=== PATIENT | male | born 1975 | race Caucasian/White ===

== ENCOUNTER 2016-10-02 12:33 | Emergency (ER) | payer SELFPAY ==
[~2016-10-02] VITALS: Ht 170.2 cm; Wt 135.0 kg
[~2016-10-02 12:33] MED LIST: IBUP200T48 PO; LOSA100T6 PO
[2016-10-02 12:35] VITALS: BP 158/116
[2016-10-02] MEDS ORDERED: NAPR500T3 PO (13:08)
[2016-10-02] MEDS ORDERED: AMLO10TA2 PO (13:08)
== END 2016-10-02 13:27 | disposition home or self-care (01) ==
LOC: ED 13:21
DX: K02.9 Dental caries, unspecified (principal)
CPT/HCPCS: 99283

== ENCOUNTER 2017-08-23 05:24 | Emergency (ER) | payer BC ==
[~2017-08-23] VITALS: Ht 177.8 cm; Wt 133.0 kg
[~2017-08-23 05:24] MED LIST changes: +AMLO10TA2 PO; -IBUP200T48 PO; +IBUP200T49 PO; +NAPR-685 PO
[2017-08-23 05:25] VITALS: BP 133/87
== END 2017-08-23 06:28 | disposition home or self-care (01) ==
LOC: ED 06:20
DX: M54.32 Sciatica, left side (principal); I10 Essential (primary) hypertension
CPT/HCPCS: 99282

== ENCOUNTER 2017-11-08 02:46 | Emergency (ER) | payer BC ==
[~2017-11-08] VITALS: Ht 170.2 cm; Wt 131.3 kg
[2017-11-08 02:48] VITALS: BP 126/84
== END 2017-11-08 04:52 | disposition home or self-care (01) ==
LOC: ED 04:47
DX: M25.572 Pain in left ankle and joints of left foot (principal)
CPT/HCPCS: 99282

== ENCOUNTER 2017-11-26 18:47 | Emergency (ER) | payer BC ==
[~2017-11-26] VITALS: Ht 172.7 cm; Wt 130.0 kg
[2017-11-26 18:54] VITALS: BP 139/93
[2017-11-26] MEDS ORDERED: LISI10TA2 PO (19:01)
[2017-11-26] MEDS ORDERED: GABA600T2 PO (19:01)
== END 2017-11-26 19:42 | disposition home or self-care (01) ==
LOC: ED 19:01
DX: K64.8 Other hemorrhoids (principal); M54.42 Lumbago with sciatica, left side; I10 Essential (primary) hypertension
CPT/HCPCS: 99284

== ENCOUNTER 2018-08-06 13:05 | Emergency (ER) | payer BC ==
[~2018-08-06] VITALS: Ht 170.2 cm; Wt 129.8 kg
[~2018-08-06 13:05] MED LIST changes: -AMLO10TA2 PO; +AMLO10TA8 PO; +GABA600T7 PO; +LISI10TA2 PO; +LOSA100T14 PO; -LOSA100T6 PO
[2018-08-06 13:15] VITALS: BP 117/82
--- NOTE | 2018-08-06 14:03 | NUR ---
Patient/Caregiver given discharge instructions and they have confirmed that they understand the instructions. Patient ambulatory with steady gait. PT LEFT WITH ALL PERSONAL BELONGINGS.
== END 2018-08-06 14:05 | disposition home or self-care (01) ==
LOC: ED 13:30
DX: H66.001 Acute suppurative otitis media without spontaneous rupture of ear drum, right ear (principal); I10 Essential (primary) hypertension
CPT/HCPCS: 99283

== ENCOUNTER 2018-11-17 16:16 | Emergency (ER) | payer BC, MEDICAID ==
[~2018-11-17] VITALS: Ht 167.6 cm; Wt 125.4 kg
[2018-11-17 16:18] VITALS: BP 144/92
[2018-11-17] MEDS ORDERED: ONDANSETRON ODT 4 MG ONE (16:43)
[2018-11-17] MEDS ORDERED: ALBUTEROL/IPRATROPIUM 2.5MG/0.5MG, 3 ML ONE (16:56)
[2018-11-17] MEDS ORDERED: ALBUTEROL/IPRATROPIUM 2.5MG/0.5MG, 3 ML NPPB ONE (17:00)
--- NOTE | 2018-11-17 17:28 | NUR ---
Patient/Caregiver given discharge instructions and they have confirmed that they understand the instructions. Patient ambulatory with steady gait.
[2018-11-17] MEDS ORDERED: ONDANSETRON ODT 4 MG PO ONE (17:30)
[2019-01-30] MEDS ORDERED: TRAZ-96 PO (20:56)
[2019-01-30] MEDS ORDERED: CYCL-259 PO (20:56)
[2019-01-30] MEDS ORDERED: HYDR-3241 PO (20:56)
[2019-01-30] MEDS ORDERED: LISI1TAB19 PO (20:56)
[2019-01-30] MEDS ORDERED: IBUPROFEN (20:56)
== END 2018-11-17 17:29 | disposition home or self-care (01) ==
LOC: ED 16:30
DX: J20.8 Acute bronchitis due to other specified organisms (principal); H60.502 Unspecified acute noninfective otitis externa, left ear; B97.89 Other viral agents as the cause of diseases classified elsewhere; I10 Essential (primary) hypertension
CPT/HCPCS: 71046; 94640; 99283; J7512; J7620; Q0162

== ENCOUNTER 2019-05-02 17:44 | Emergency (ER) | payer MEDICAID ==
[~2019-05-02] VITALS: Ht 172.7 cm; Wt 117.4 kg
[~2019-05-02 17:44] MED LIST changes: +CYCL-259 PO; +HYDR-3241 PO; +IBUPROFEN; +LISI1TAB19 PO; +TRAZ-96 PO
--- NOTE | 2019-05-02 18:35 | NUR ---
ASSUMED CARE OF PATIENT. PATIENT REPORTS HE HAD SHOULDER SURGERY 5 DAYS AGO. 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 PT ALSO REPORTS AFTER HIS SURGERY HIS HEART RATE WAS ELEVATED AND HE WAS KEPT IN THE HOSPITAL AN EXTRA DAY. REPEAT EKG DONE. DR GARCIA HAS SEEN IT. CARDIAC MONTIOR ON. SINSU TACH NOTED. VS STABLE. WILL CONTINUE TO MONITOR.
[2019-05-02] MEDS ORDERED: SODIUM CHLORIDE FLUSH 10ML SYR IVF ONE (19:00)
[2019-05-02] MEDS ORDERED: SODIUM CHLORIDE 0.9% 1,000ML IVBOLUS ONE (19:00)
[2019-05-02] MEDS ORDERED: ASPIRIN 81 MG TABLET CHEW PO ONE (19:00)
[2019-05-02 19:05] LABS: BASOPHILS # (AUTO) 0.05 x10^3/uL (0-0.1); BASOPHILS % (AUTO) 1 % (0-1); EOSINOPHILS # (AUTO) 0.19 x10^3/uL (0-0.4); EOSINOPHILS % (AUTO) 2 % (1-7); LYMPHOCYTES # (AUTO) 1.97 x10^3/uL (1-3.4); LYMPHOCYTES % (AUTO) 21 % (22-44); MD NO; MEAN CORPUSCULAR HEMOGLOBIN 28.5 pg (27.5-34.5); MEAN CORPUSCULAR HGB CONC 33.5 g/dL (33.2-36.2); MEAN CORPUSCULAR VOLUME 85.3 fL (81-97); MEAN PLATELET VOLUME 10.4 fL (7.4-10.4); MONOCYTES # (AUTO) 0.79 x10^3/uL (0.2-0.8); MONOCYTES % (AUTO) 8 % (2-9); NEUTROPHILS # (AUTO) 6.62 x10^3/uL (1.8-6.8); NEUTROPHILS % (AUTO) 69 % (42-75); PLATELET COUNT 317 x10^3/uL (130-400); RED BLOOD COUNT 5.29 x10^6/uL (4.38-5.82); RED CELL DISTRIBUTION WIDTH 13.8 % (9.4-14.8)
--- NOTE | 2019-05-02 19:05 | NUR ---
Report received from RADHA Early Unable to obtain IV access at this time. Xray at bedside. Pt does report he feels better.
[2019-05-02 19:15] LABS: ALANINE AMINOTRANSFERASE 26 U/L (12-78); ALBUMIN 3.5 g/dL (3.4-5.0); ANION GAP 8 mmol/L (5-15); CALCIUM 9.1 mg/dL (8.5-10.1); CHLORIDE 103 mmol/L (98-107); CREATININE 1.37 mg/dL (0.7-1.3)
[2019-05-02] MEDS ORDERED: ASPIRIN 81 MG TABLET CHEW ONE (19:15)
[2019-05-02 19:20] LABS: ALKALINE PHOSPHATASE 99 U/L (45-117); BILIRUBIN,TOTAL 0.5 mg/dL (0.2-1.0); TOTAL PROTEIN 8.1 g/dL (6.4-8.2); TROPONIN I < 0.015 ng/mL (0.000-0.045)
--- NOTE | 2019-05-02 19:24 | NUR ---
Pt medicated per JUN. Call light within reach.
[2019-05-02 20:18] VITALS: BP 113/67
--- NOTE | 2019-05-02 20:26 | NUR ---
Pt dc'd to self care. Pt reports feeling better. Education provided including fluids, follow-up, home care and S/Sx to return. Pt ambulated out of ER.
== END 2019-05-02 20:28 | disposition home or self-care (01) ==
LOC: ED 20:05
DX: R42 Dizziness and giddiness (principal); E86.0 Dehydration; I10 Essential (primary) hypertension
CPT/HCPCS: 36415; 71045; 80053; 84484; 85025; 93005; 96360; 99284; J7030

== ENCOUNTER 2019-11-04 19:15 | Emergency (ER) | payer MEDICAID ==
[~2019-11-04] VITALS: Ht 167.6 cm; Wt 115.0 kg
[2019-11-04 19:18] VITALS: BP 136/96
--- NOTE | 2019-11-04 19:40 | NUR ---
assumed car eof pt. pt here for s/o N/V x1 day. pt reports that he has had numerous episodes of vomiting today but denies diarrhea. pt is pale and diaphoretic, denies pain. pt has not other c/o at this time. pt reports recent hx of L shoulder surgery and reports that he occasionally smokes marijuana. pt also states that he has had recent increase in urinary frequency and urgency with difficulty initiating and maintaining urine stream . denies hematuria no family at bedside
[2019-11-04] MEDS ORDERED: ONDANSETRON 2MG/ML, 2ML ONE (19:46)
--- NOTE | 2019-11-04 19:55 | NUR ---
lab at bedside for additional blood draw. rpeort to Alise GARCIA
[2019-11-04] MEDS ORDERED: SODIUM CHLORIDE 0.9% 1,000ML IVBOLUS ONE (20:00)
[2019-11-04] MEDS ORDERED: SODIUM CHLORIDE FLUSH 10ML SYR IVF ONE (20:00)
[2019-11-04] MEDS ORDERED: ONDANSETRON 2MG/ML, 2ML IVPush ONE (20:00)
[2019-11-04] MEDS ORDERED: MORPHINE SULFATE 4 MG/ML, 1ML IVPush PRN (20:00)
[2019-11-04 20:03] LABS: BASOPHILS # (AUTO) 0.05 x10^3/uL (0-0.1); BASOPHILS % (AUTO) 0 % (0-1); EOSINOPHILS # (AUTO) 0.02 x10^3/uL (0-0.4); EOSINOPHILS % (AUTO) 0 % (1-7); LYMPHOCYTES % (AUTO) 11 % (22-44); MD NO; MEAN CORPUSCULAR HEMOGLOBIN 28.2 pg (27.5-34.5); MEAN CORPUSCULAR HGB CONC 32.8 g/dL (33.2-36.2); MEAN CORPUSCULAR VOLUME 86.1 fL (81-97); MEAN PLATELET VOLUME 10.6 fL (7.4-10.4); MONOCYTES # (AUTO) 0.44 x10^3/uL (0.2-0.8); MONOCYTES % (AUTO) 3 % (2-9); NEUTROPHILS % (AUTO) 85 % (42-75); PLATELET COUNT 290 x10^3/uL (130-400); RED CELL DISTRIBUTION WIDTH 13.4 % (9.4-14.8)
[2019-11-04 20:14] LABS: ALANINE AMINOTRANSFERASE 25 U/L (12-78); ALBUMIN 4.4 g/dL (3.4-5.0); ANION GAP 9 mmol/L (5-15); CALCIUM 10.6 mg/dL (8.5-10.1); CHLORIDE 106 mmol/L (98-107); CREATININE 1.21 mg/dL (0.7-1.3)
[2019-11-04] MEDS ORDERED: MORPHINE SULFATE 4 MG/ML, 1ML ONE (20:14)
[2019-11-04 20:17] LABS: ALKALINE PHOSPHATASE 128 U/L (45-117); BILIRUBIN,TOTAL 0.6 mg/dL (0.2-1.0); TOTAL PROTEIN 9.1 g/dL (6.4-8.2)
[2019-11-04] MEDS ORDERED: MAALOX/HYOSCYAMINE/LIDOCAINE 45 ML BTL ONE (20:59)
[2019-11-04] MEDS ORDERED: MAALOX/HYOSCYAMINE/LIDOCAINE 45 ML BTL PO ONE (21:30)
== END 2019-11-04 22:36 | disposition home or self-care (01) ==
LOC: ED 20:21
DX: K29.00 Acute gastritis without bleeding (principal); R11.2 Nausea with vomiting, unspecified; I10 Essential (primary) hypertension; M10.9 Gout, unspecified
CPT/HCPCS: 36415; 80053; 83605; 83690; 85025; 96361; 96374; 99283; J2405; J7030

== ENCOUNTER 2020-04-03 19:41 | Inpatient (IN) | payer MEDICAID ==
[~2020-04-03] VITALS: Ht 170.2 cm; Wt 128.5 kg
[~2020-04-03 19:41] MED LIST changes: +AMLO-211 PO; -AMLO10TA8 PO; -LISI1TAB19 PO; +LISI1TAB39 PO
--- NOTE | 2020-04-03 19:51 | NUR ---
speaks full sentences, nad at triage. EKG per protocol.
--- NOTE | 2020-04-03 20:32 | NUR ---
Pt to rm from lobby
[2020-04-03] MEDS ORDERED: MAALOX/HYOSCYAMINE/LIDOCAINE 45 ML BTL ONE (21:21)
[2020-04-03] MEDS ORDERED: MAALOX/HYOSCYAMINE/LIDOCAINE 45 ML BTL PO ONE (21:30)
[2020-04-03 21:32] LABS: BASOPHILS % (AUTO) 1 % (0-1); EOSINOPHILS % (AUTO) 1 % (1-7); LYMPHOCYTES % (AUTO) 21 % (22-44); MEAN CORPUSCULAR HEMOGLOBIN 28.4 pg (27.5-34.5); MEAN CORPUSCULAR HGB CONC 33.5 g/dL (33.2-36.2); MEAN PLATELET VOLUME 10.4 fL (7.4-10.4); MONOCYTES % (AUTO) 9 % (2-9); NEUTROPHILS % (AUTO) 69 % (42-75); PLATELET COUNT 243 x10^3/uL (130-400); RED BLOOD COUNT 6.17 x10^6/uL (4.38-5.82); RED CELL DISTRIBUTION WIDTH 13.8 % (9.4-14.8)
[2020-04-03 21:35] LABS: MD NO
[2020-04-03 21:39] LABS: ALBUMIN 4.3 g/dL (3.4-5.0); ANION GAP 8 mmol/L (5-15); CALCIUM 9.2 mg/dL (8.5-10.1); CHLORIDE 104 mmol/L (98-107)
[2020-04-03 21:43] LABS: TROPONIN I < 0.015 ng/mL (0.000-0.045)
--- NOTE | 2020-04-03 22:11 | NUR ---
PT SITTING UPRIGHT ON EDGE OF MICHELLE FOSTER, JOSÉ ANTONIO. PT DENIES ANY NEEDS AT THIS TIME. CALL LIGHT AND PERSONAL BELONGINGS WITHIN REACH.
--- NOTE | 2020-04-03 22:16 | NUR ---
ERP AT BEDSIDE
[2020-04-03] MEDS ORDERED: SODIUM CHLORIDE FLUSH 10ML SYR IVF ONE (22:30)
--- NOTE | 2020-04-03 22:42 | NUR ---
PT TO CT
[2020-04-03] MEDS ORDERED: OMNIPAQUE 350 MG/ML, 100ML BOTTLE ONE (22:45)
--- NOTE | 2020-04-03 23:04 | NUR ---
GIOVANA, SIGNIFICANT OTHER: [phone]
--- NOTE | 2020-04-03 23:10 | NUR ---
PT SITTING UPRIGHT ON GUCOURTNEY VSOneil. RESPIRATIONS REGULAR AND UNLABORED. NO NEEDS AT THIS TIME.
[2020-04-03] MEDS ORDERED: ASPIRIN 325 MG TABLET ONE (23:24)
[2020-04-03] MEDS ORDERED: ASPIRIN 325 MG TABLET PO ONE (23:30)
[2020-04-03] MEDS ORDERED: CEFTRIAXONE PMX 1GM/50ML 50 ML ONE (23:42)
--- NOTE | 2020-04-03 23:52 | NUR ---
PT TRANSFERED TO HOSPITAL BED FROM ED [facility]. TOLERATED WELL.
[2020-04-04] MEDS ORDERED: ONDANSETRON ODT 4 MG PO PRN
[2020-04-04] MEDS ORDERED: CEFTRIAXONE PMX 1GM/50ML 50 ML IV SCH
[2020-04-04] MEDS ORDERED: ACETAMINOPHEN 325 MG TABLET PO PRN
[2020-04-04] MEDS ORDERED: CYCLOBENZAPRINE 10 MG TABLET PO PRN
[2020-04-04] MEDS ORDERED: AZITHROMYCIN 500 MG in SODIUM CHLORIDE 0.9% 250 ML IV SCH
[2020-04-04] MEDS ORDERED: TRAZODONE 100MG TABLET PO SCH
[2020-04-04] MEDS ORDERED: morphine SULFATE 10 MG/ML, 1ML IVPush PRN
[2020-04-04] MEDS ORDERED: NITROGLYCERIN 0.4 MG BOTTLE (25 TABS) SL PRN
[2020-04-04] MEDS ORDERED: BISACODYL 10 MG SUPP PR PRN
[2020-04-04] MEDS ORDERED: POLYETHYLENE GLYCOL 17 GM PACKET PO PRN
[2020-04-04] MEDS ORDERED: TRAZODONE 100MG TABLET ONE (00:15)
[2020-04-04] MEDS ORDERED: HEPARIN 5,000 UNITS/ML, 1ML ONE (00:15)
[2020-04-04] MEDS: HEPARIN 5,000 UNITS/ML, 1ML SQ SCH ×2 (00:21→08:00)
[2020-04-04] MEDS ORDERED: NS + 20MEQ KCL 1,000 ML IV ONE ×2 (00:27→07:34)
[2020-04-04] MEDS ORDERED: ONDANSETRON ODT 4 MG ONE (00:33)
--- NOTE | 2020-04-04 00:36 | NUR ---
PT C/O MILD NAUSEA "I THINK I AM JUST ANXIOUS AND GETTING MYSELF ALL WORKED UP". MEDICATED PER EMAR. NO ADDITIONAL NEEDS AT THIS TIME. CALL LIGHT AND PERSONAL BELONGINGS WITHIN REACH.
[2020-04-04] MEDS: NS + 20MEQ KCL 1,000 ML IV SCH ×2 (01:42→07:45)
--- NOTE | 2020-04-04 02:00 | NUR ---
PT SUPINE ON HOSPITAL BED, RESTING COMFORTABLY WITH EYES CLOSED. NAD, VSS. NO NEEDS AT THIS TIME.
[2020-04-04 03:37] LABS: ANION GAP 4 mmol/L (5-15); CALCIUM 8.8 mg/dL (8.5-10.1); CHLORIDE 105 mmol/L (98-107); CHOLESTEROL, TOTAL 195 mg/dL (140-239); CREATININE 1.16 mg/dL (0.7-1.3); TRIGLYCERIDES 220 mg/dL (50-200); VLDL CHOLESTEROL 44 mg/dL (0-25)
[2020-04-04 03:41] LABS: CHOL/HDL RATIO 4.3; HDL CHOL % 23 % (26-37); HDL CHOLESTEROL (DIRECT) 45 mg/dL (40-60); LDL CHOLESTEROL,CALCULATED 106 mg/dL (54-169); LDL/HDL RATIO 2.4 (0.5-3.0); TROPONIN I < 0.015 ng/mL (0.000-0.045)
[2020-04-04 04:17] LABS: BASOPHILS % (AUTO) 1 % (0-1); EOSINOPHILS % (AUTO) 1 % (1-7); LYMPHOCYTES % (AUTO) 21 % (22-44); MEAN CORPUSCULAR HEMOGLOBIN 28.7 pg (27.5-34.5); MEAN CORPUSCULAR HGB CONC 33.7 g/dL (33.2-36.2); MEAN PLATELET VOLUME 10.6 fL (7.4-10.4); MONOCYTES % (AUTO) 9 % (2-9); NEUTROPHILS % (AUTO) 69 % (42-75); PLATELET COUNT 238 x10^3/uL (130-400); RED BLOOD COUNT 5.81 x10^6/uL (4.38-5.82); RED CELL DISTRIBUTION WIDTH 13.9 % (9.4-14.8)
[2020-04-04 04:18] LABS: MD NO
--- NOTE | 2020-04-04 04:20 | NUR ---
PT REPOSITIONED ON HOSPITAL BED FOR COMFORT. URINAL PROVIDED. NO ADDITIONAL NEEDS AT THIS TIME. CALL LIGHT AND PERSONAL BELONGINGS IN REACH
[2020-04-04] MEDS ORDERED: ASPIRIN 81 MG TABLET EC ONE (05:55)
[2020-04-04] MEDS ORDERED: ASPIRIN 81 MG TABLET EC PO SCH (06:00)
--- NOTE | 2020-04-04 06:08 | NUR ---
PT SUPINE ON HOSPITAL BED RESTING COMFORTABLY WITH EYES CLOSED. PT DENIES ANY NEEDS AT THIS TIME. CALL LIGHT AND PERSONAL BELONGINGS WITHIN REACH. WILL CONTINUE TO MONITOR.
--- NOTE | 2020-04-04 06:55 | NUR ---
BEDSIDE REPORT TO VICK GARCIA
--- NOTE | 2020-04-04 07:00 | NUR ---
REPORT FROM FAISAL RN WITH ASSESSMENT PATIENT RESTING COMFORTABLY ON HOSPITAL BED. NO RESPIRATORY DISTRESS NOTED. ROOM AIR POX 96 UPDATED ON ESTIMATED POC
--- NOTE | 2020-04-04 08:02 | NUR ---
PATIENT PREPARING FOR TRANSFER HE ACCIDENTILLY PULLED PIV OUT. NEW PIV PLACED WITH ULTRASOUND TO LEFT FOREARM
[2020-04-04] MEDS ORDERED: LISINOPRIL 20 MG TABLET PO SCH (09:00)
[2020-04-04] MEDS ORDERED: SENNA/DOCUSATE TABLET PO SCH (09:00)
[2020-04-04] MEDS ORDERED: HYDROCHLOROTHIAZIDE 12.5 MG CAPSULE PO SCH (09:00)
[2020-04-04 09:08] VITALS: BP 125/83
[2020-04-04 09:49] LABS: TROPONIN I < 0.015 ng/mL (0.000-0.045)
[2020-04-04] MEDS ORDERED: CEFD300C37 PO (10:21)
[2020-04-04] MEDS ORDERED: AZIT250T PO (10:21)
[2020-04-04] MEDS ORDERED: ASPI81TA45 PO (10:21)
[2020-04-04] MEDS ORDERED: OMEP-110 PO (10:22)
== END 2020-04-04 12:00 | disposition home or self-care (01) | DRG 313 ==
LOC: ED 23:45 → EDIP 04-04 00:06 → 4EST 04-04 08:09
PROVIDERS: ADMIT Internal Medicine; ATTEND Family Medicine
DX: R07.89 Other chest pain (principal); J18.9 Pneumonia, unspecified organism; N17.9 Acute kidney failure, unspecified; Z68.41 Body mass index [BMI] 40.0-44.9, adult; E66.01 Morbid (severe) obesity due to excess calories; E87.6 Hypokalemia; F12.90 Cannabis use, unspecified, uncomplicated; G89.29 Other chronic pain; I10 Essential (primary) hypertension; I25.10 Atherosclerotic heart disease of native coronary artery without angina pectoris; K21.9 Gastro-esophageal reflux disease without esophagitis; Z20.828 Contact with and (suspected) exposure to other viral communicable diseases; Z96.611 Presence of right artificial shoulder joint; Z96.612 Presence of left artificial shoulder joint; M10.9 Gout, unspecified; M19.90 Unspecified osteoarthritis, unspecified site; I25.2 Old myocardial infarction; Z79.899 Other long term (current) drug therapy
CPT/HCPCS: 36415; 71045; 71275; 80048; 80061; 82040; 84484; 85025; 87635; 93005; 96365; 96375; G0378; J0456; J0696; J1644; J3480; Q0162; Q9967; J7050

== ENCOUNTER 2020-04-06 16:15 | Emergency (ER) | payer MEDICAID ==
[~2020-04-06] VITALS: Ht 172.7 cm; Wt 126.7 kg
[~2020-04-06 16:15] MED LIST changes: +ASPI81TA45 PO; +AZIT250T PO; +CEFD300C37 PO; +OMEP-110 PO
[2020-04-06] MEDS ORDERED: ASPIRIN 81 MG TABLET CHEW PO ONE (16:30)
[2020-04-06 17:08] LABS: ALBUMIN 4.4 g/dL (3.4-5.0); ANION GAP 6 mmol/L (5-15); CALCIUM 9.6 mg/dL (8.5-10.1); CHLORIDE 108 mmol/L (98-107)
[2020-04-06 17:13] LABS: BASOPHILS % (AUTO) 1 % (0-1); EOSINOPHILS % (AUTO) 1 % (1-7); LYMPHOCYTES % (AUTO) 19 % (22-44); MEAN CORPUSCULAR HEMOGLOBIN 28.6 pg (27.5-34.5); MEAN CORPUSCULAR HGB CONC 33.3 g/dL (33.2-36.2); MEAN PLATELET VOLUME 10.5 fL (7.4-10.4); MONOCYTES % (AUTO) 9 % (2-9); NEUTROPHILS % (AUTO) 72 % (42-75); PLATELET COUNT 258 x10^3/uL (130-400); RED BLOOD COUNT 6.08 x10^6/uL (4.38-5.82); RED CELL DISTRIBUTION WIDTH 13.6 % (9.4-14.8)
[2020-04-06 17:15] LABS: ALANINE AMINOTRANSFERASE 27 U/L (12-78); ALKALINE PHOSPHATASE 124 U/L (45-117); BILIRUBIN,TOTAL 0.4 mg/dL (0.2-1.0); CREATININE 1.51 mg/dL (0.7-1.3); MD NO; TOTAL PROTEIN 8.9 g/dL (6.4-8.2); TROPONIN I < 0.015 ng/mL (0.000-0.045)
--- NOTE | 2020-04-06 19:51 | NUR ---
PT STATES "I ALREADY GOT IT," WHEN THIS RN ASK IF HE WANTED THE PRESCRIBED ASA. LAZARO.
--- NOTE | 2020-04-06 19:54 | NUR ---
PT STATES "I WAS JUST ADMITTED FOR PNA, MY HR WAS 125 THEN, SO I KNOW IT'S A LITTLE HIGH."
[2020-04-06 19:55] VITALS: BP 138/85
== END 2020-04-06 19:58 | disposition home or self-care (01) ==
LOC: ED 19:52
DX: R07.89 Other chest pain (principal); R42 Dizziness and giddiness; R00.0 Tachycardia, unspecified; I10 Essential (primary) hypertension; Z96.612 Presence of left artificial shoulder joint; Z96.611 Presence of right artificial shoulder joint
CPT/HCPCS: 36415; 71045; 80053; 83880; 84484; 85025; 93005; 99285

== ENCOUNTER 2020-05-21 06:07 | Outpatient (CLI) | payer MEDICAID ==
[~2020-05-21 06:07] MED LIST changes: -CYCL-259 PO; +CYCL10TA2 PO; +LISI10TA19 PO; -LISI10TA2 PO
== END 2020-05-21 23:59 | disposition home or self-care (01) ==
LOC: CVU 06:07
PROVIDERS: ATTEND Internal Medicine Cardiovascular Disease
DX: I37.1 Nonrheumatic pulmonary valve insufficiency (principal); R94.31 Abnormal electrocardiogram [ECG] [EKG]; I10 Essential (primary) hypertension
CPT/HCPCS: 93306; 93356